=== PATIENT | female | born 1975 | race Caucasian/White ===

== ENCOUNTER → 2017-08-22 | Outpatient (CLI) | payer MEDICARE, MEDICAID ==
[~2017-08-22] MED LIST: AMBIEN10 MG PO; BACTROBAN CREAM15 GM PO; PERCOCET 325 MG1 TA5 PO; ULTRAM50 MG PO; XANAX XR1 MG PO
== END | disposition home or self-care (01) ==
LOC: CARD 12:51
DX: R94.31 Abnormal electrocardiogram [ECG] [EKG] (principal)

== ENCOUNTER 2018-05-19 13:52 | Emergency (ER) | payer MEDICARE ==
[2018-05-19] MEDS ORDERED: TRAZODONE50 MG PO (14:03)
[2018-05-19] MEDS ORDERED: ADDERALL 20 MG20 MG PO (14:03)
[2018-05-19] MEDS ORDERED: MEDROL DOSEPAK4 MG PO (15:46)
== END 2018-05-19 15:52 | disposition home or self-care (01) ==
LOC: ED 13:52
DX: M77.9 Enthesopathy, unspecified (principal); M25.531 Pain in right wrist; Z88.2 Allergy status to sulfonamides

== ENCOUNTER → 2020-10-10 | Outpatient (CLI) | payer MEDICARE ==
[~2020-10-10] MED LIST changes: +ADDERALL 20 MG20 MG PO; +MEDROL DOSEPAK4 MG PO; +TRAZODONE50 MG PO
== END | disposition home or self-care (01) ==
LOC: MAMMO 00:05
PROVIDERS: ATTEND Internal Medicine
DX: Z12.31 Encounter for screening mammogram for malignant neoplasm of breast (principal); N64.89 Other specified disorders of breast

== ENCOUNTER → 2021-06-15 | Outpatient (CLI) | payer MEDICARE ==
[~2021-06-15] MED LIST changes: +AZITHROMYCIN500 M2 PO; +PREDNISONE50 MG PO
== END | disposition home or self-care (01) ==
LOC: COVID19 14:58
PROVIDERS: ATTEND Podiatrist Foot & Ankle Surgery
DX: Z11.52 Encounter for screening for COVID-19 (principal)

== ENCOUNTER 2021-06-30 13:37 | Emergency (ER) | payer MEDICARE ==
[~2021-06-30] VITALS: Ht 167.6 cm; Wt 127.0 kg
[~2021-06-30 13:37] MED LIST changes: -AZITHROMYCIN500 M2 PO; -PREDNISONE50 MG PO
[2021-06-30 15:25] LABS: BASO # 0.1 10*3/uL (0.0-0.1); BASO % 1.2 % (0.0-1.0); EOS # 0.6 10*3/uL (0.0-0.4); EOS % 14.4 % (1.0-4.0); HEMATOCRIT 40.8 % (37.0-47.0); LYMPH # 1.2 10*3/uL (1.3-4.4); LYMPH % 28.6 % (27.0-41.0); MEAN CELL VOLUME 90.1 fl (81.0-99.0); MEAN CORPUSCULAR HGB 29.6 pg (27.0-31.0); MEAN CORPUSCULAR HGB CONC 32.8 g/dl (33.0-37.0); MEAN PLATELET VOLUME 9.9 fl (9.6-12.3); MONO # 0.5 10*3/uL (0.1-1.0); MONO % 11.7 % (3.0-9.0); NEUT # 1.8 10*3/uL (2.3-7.9); NEUT % 44.1 % (47.0-73.0); PLATELET COUNT AUTOMATED 326 10*3/uL (130-400); RED BLOOD COUNT 4.53 10*6/uL (4.10-5.10); RED CELL DISTRI WIDTH 13.2 % (0-14.5); WHITE BLOOD COUNT 4.1 10*3/uL (4.8-10.8)
[2021-06-30 15:40] LABS: ALBUMIN 3.8 gm/dl (3.1-4.5); ALKALINE PHOSPHATASE 74 U/L (45-117); BUN 8 mg/dl (7-24); CHLORIDE 109 mmol/L (98-107); CPK 110 U/L (26-192); CREATININE 1.01 mg/dL (0.55-1.02); POTASSIUM 4.2 mmol/L (3.5-5.1); SGOT/AST 18 IU/L (3-35); SGPT/ALT 31 U/L (12-78); SODIUM 140 mmol/L (136-145); TOTAL PROTEIN 7.4 gm/dL (6.4-8.2)
[2021-06-30] MEDS ORDERED: PREDNISONE50 MG PO (16:38)
[2021-06-30] MEDS ORDERED: AZITHROMYCIN500 M2 PO (16:40)
== END 2021-06-30 17:35 | disposition home or self-care (01) ==
LOC: ED 13:37
PROVIDERS: Nurse Practitioner Family
DX: J40 Bronchitis, not specified as acute or chronic (principal); Z20.822 Contact with and (suspected) exposure to COVID-19; Z88.2 Allergy status to sulfonamides; Z79.899 Other long term (current) drug therapy

== ENCOUNTER 2021-07-03 19:35 | Emergency (ER) | payer MEDICARE ==
[~2021-07-03 19:35] MED LIST changes: +AZITHROMYCIN500 M2 PO; +PREDNISONE50 MG PO
== END 2021-07-03 21:35 | disposition left against medical advice (07) ==
LOC: ED 19:35
DX: R05.9 Cough, unspecified (principal); R06.02 Shortness of breath; Z53.21 Procedure and treatment not carried out due to patient leaving prior to being seen by health care provider

== ENCOUNTER → 2021-08-25 | Outpatient (CLI) | payer MEDICARE | END | disposition home or self-care (01) | LOC: COVID19 15:37 | PROVIDERS: ATTEND Internal Medicine | DX: Z20.822 Contact with and (suspected) exposure to COVID-19 (principal) ==